=== PATIENT | male | born 1995 | race Caucasian/White ===

== ENCOUNTER 2018-11-13 08:30 | Emergency (ER) | payer OTHER ==
[~2018-11-13] VITALS: Ht 180.3 cm; Wt 68.0 kg
[~2018-11-13 08:30] MED LIST: IBUPROFEN600 MG PO; NORCO 5-325 TA1 EACH PO
[2018-11-13] MEDS ORDERED: METHYLPREDNISOLO4 M1 PO (09:07)
[2018-11-13] MEDS ORDERED: BACLOFEN10 MG PO (09:07)
[2018-11-13] MEDS ORDERED: NORCO 5-325 TA1 EACH PO (09:07)
--- NOTE | 2018-11-14 13:15 | EKG ---
[facility] [address] [place], [place] [address] Signed Normal sinus rhythm with sinus arrhythmia Normal ECG No previous ECGs available Confirmed by TOMMY FERRARI MD ([id number] on 11/14/2018 1:15:29 PM Electronically Signed By: TOMMY FERRARI MD 11/14/18 1315 PATIENT NAME: MARTINA RIGGS Electrocardiogram DATE OF : [birth year] PHYSICIAN: TOMMY FERRARI MD REPORT #: [id number] REPORT IS CONFIDENTIAL AND NOT TO BE RELEASED WITHOUT AUTHORIZATION
== END 2018-11-13 09:15 | disposition home or self-care (01) ==
LOC: ED 08:30
DX: M94.0 Chondrocostal junction syndrome [Tietze] (principal); Z79.899 Other long term (current) drug therapy
CPT/HCPCS: 71045; 93005; 93010; 99285-25